=== PATIENT | male | born 1975 | race Caucasian/White ===

== ENCOUNTER 2021-06-27 15:33 | Inpatient (IN) | payer OTHER ==
[~2021-06-27] VITALS: Ht 180.3 cm; Wt 80.0 kg
[2021-06-27 16:17] LABS: BASOPHIL 0.9 % (0-2); HCT 47.3 % (42.0-52.0); LYMPHOCYTE 33.8 % (15-48); MCH 28.3 pg (25.0-31.0); MCHC 31.7 g/dL (32.0-36.0); MCV 89.2 fL (78.0-100.0); MONOCYTE 9.1 % (0-12); MPV 9.6 fL (6.0-9.5); NEUTROPHIL 55.1 % (41-80); NRBC 0; PLT 272 K/uL (150-400); RDW 15.4 % (11.5-14.0); WBC 7.9 K/uL (4.0-10.5)
[2021-06-27 16:41] LABS: ALBUMIN 3.5 g/dL (3.4-5.0); BILIRUBIN - TOTAL 0.3 mg/dL (0.2-1.0); BUN/CREAT RATIO (CALC) 19.6 RATIO; CREATININE 0.92 mg/dL (0.67-1.17); GLOBULIN (CALCULATION) 4.3 g/dL; POTASSIUM 5.2 mmol/L (3.5-5.1); TOTAL PROTEIN 7.8 g/dL (6.4-8.2)
[2021-06-27 17:31] LABS: BILIRUBIN NEGATIVE (NEGATIVE); BLOOD NEGATIVE Ery/uL (NEGATIVE); CLARITY CLEAR (CLEAR); COLOR YELLOW (YELLOW); GLUCOSE (U) NORMAL (NORMAL); LEUKOCYTES NEGATIVE Leu/uL (NEGATIVE); NITRITE NEGATIVE (NEGATIVE); PROTEIN NEGATIVE (NEGATIVE); SPECIFIC GRAVITY >=1.030 (1.001-1.030); UROBILINOGEN 0.2 mg/dL (0.2-1.0); pH 5.5 (5.0-9.0)
[2021-06-27 17:37] LABS: AMPHETAMINES NEGATIVE (NEGATIVE); BARBITURATES NEGATIVE (NEGATIVE); ECSTASY (MDMA) NEGATIVE (NEGATIVE); MARIJUANA (THC) NEGATIVE (NEGATIVE); METHADONE NEGATIVE (NEGATIVE); OPIATES NEGATIVE (NEGATIVE); OXYCODONE NEGATIVE (NEGATIVE)
[2021-06-27] MEDS ORDERED: ASPIRIN EC81 MG PO (18:25)
[2021-06-27] MEDS ORDERED: EFFIENT10 MG PO (18:26)
[2021-06-27] MEDS ORDERED: LOPRESSOR50 MG PO (18:26)
[2021-06-27] MEDS ORDERED: CRESTOR20 MG PO (18:27)
[2021-06-27] MEDS ORDERED: PRINIVIL20 MG PO (18:27)
[2021-06-27] MEDS ORDERED: GABAPENTIN600 MG PO (18:28)
[2021-06-27] MEDS ORDERED: NITROQUIK SL0.4 MG SL (18:28)
[2021-06-27] MEDS ORDERED: JANUVIA50 MG PO (18:29)
[2021-06-27] MEDS ORDERED: METFORMIN HCL500 MG PO (18:29)
--- NOTE | 2021-06-27 18:33 | NUR ---
MD AWARE OF BP 160/109. PENDING ORDERING HOME MEDS.
[2021-06-28 05:58] LABS: EOSINOPHIL 2.4 % (0-5); HGB 14.9 g/dl (13.2-18.0); LYMPHOCYTE 35.3 % (15-48); MCH 27.9 pg (25.0-31.0); MCHC 31.7 g/dL (32.0-36.0); MCV 87.9 fL (78.0-100.0); MONOCYTE 9.2 % (0-12); MPV 9.6 fL (6.0-9.5); NEUTROPHIL 51.9 % (41-80); NRBC 0; PLT 269 K/uL (150-400); RBC 5.35 M/uL (4.70-6.00); RDW 15.4 % (11.5-14.0); WBC 9.7 K/uL (4.0-10.5)
[2021-06-28 06:07] LABS: BUN/CREAT RATIO (CALC) 19.5 RATIO; CREATININE 0.82 mg/dL (0.67-1.17); POTASSIUM 4.6 mmol/L (3.5-5.1)
--- NOTE | 2021-06-28 18:19 | NUR ---
REPORT WAS CALLED TO PAUL POLO AT [facility] AND LUNG STATES THAT THE ACCEPTING PHYSICAN AT THIS TIME IS DR HINKLE. EMS WAS CALLED AND ARRIVED AT 1800 TO TRANSPORT PATIENT. PT WAS STABLE WITH NO COMPLAINTS.[facility] WAS GIVEN AN REPORT.
== END 2021-06-28 17:52 | disposition other institution (70) | DRG 281 ==
LOC: FER 15:33 → FTCU 17:01
PROVIDERS: Internal Medicine; ADMIT Internal Medicine
DX: I22.2 Subsequent non-ST elevation (NSTEMI) myocardial infarction (principal); I47.1 Supraventricular tachycardia; I21.4 Non-ST elevation (NSTEMI) myocardial infarction; Z20.822 Contact with and (suspected) exposure to COVID-19; I25.10 Atherosclerotic heart disease of native coronary artery without angina pectoris; E11.51 Type 2 diabetes mellitus with diabetic peripheral angiopathy without gangrene; G43.909 Migraine, unspecified, not intractable, without status migrainosus; F15.10 Other stimulant abuse, uncomplicated; G40.909 Epilepsy, unspecified, not intractable, without status epilepticus; E78.5 Hyperlipidemia, unspecified; I11.9 Hypertensive heart disease without heart failure; Z95.5 Presence of coronary angioplasty implant and graft; Z95.1 Presence of aortocoronary bypass graft; Z79.82 Long term (current) use of aspirin; Z79.02 Long term (current) use of antithrombotics/antiplatelets; Z79.84 Long term (current) use of oral hypoglycemic drugs; Z79.899 Other long term (current) drug therapy
CPT/HCPCS: 36415; 80048; 80053; 80305; 81003; 84443; 84484; 85025; 93005; U0002